=== PATIENT | male | born 1970 | race Caucasian/White ===

== ENCOUNTER 2025-01-05 07:22 | Outpatient (CLI) | payer BC, SELFPAY ==
--- NOTE | 2025-01-05 08:20 | W.ANESCHARGE ---
Anesthesia Charges Start Date/Time Anesthesia Start Date: 01/05/25 Anesthesia Start Time: 08:00 Stop Date/Time Anesthesia Stop Date: 01/05/25 Anesthesia Stop Time: 08:19 Coding CPT Codes CPT Codes: ANEKiara LWR INTST SCR COLSC - [id number] ([id number]) P1 - NORMAL HEALTHY PATIENT, QK - PLATE INSPECTOR 2-4 CNCRNT ANES PROC, QX - BARREL LOADER SVC W/ MED DIRECTION
--- NOTE | 2025-01-05 08:40 | W.ANESCHARGE ---
Anesthesia Charges Start Date/Time Anesthesia Start Date: 01/05/25 Anesthesia Start Time: 08:00 Stop Date/Time Anesthesia Stop Date: 01/05/25 Anesthesia Stop Time: 08:19 Coding CPT Codes CPT Codes: ANEKiara LWR INTST SCR COLSC - 73239 ([id number]) P1 - NORMAL HEALTHY PATIENT, QK - SHOP COORDINATOR 2-4 CNCRNT ANES PROC, QX - SENIOR ACCOUNTANT SVC W/ MED DIRECTION
== END 2025-01-05 07:23 | disposition home or self-care (01) ==
LOC: OP CLINIC 07:23
PROVIDERS: Visit Provider Internal Medicine Gastroenterology
DX: Z12.11 Encounter for screening for malignant neoplasm of colon (principal); Z86.0101 Personal history of adenomatous and serrated colon polyps
CPT/HCPCS: 00812; 45378; J2704